=== PATIENT | female | born 1975 | race Caucasian/White ===

== ENCOUNTER 2016-12-18 18:40 | Emergency (ER) | payer SELFPAY ==
[~2016-12-18] VITALS: Ht 167.6 cm; Wt 90.0 kg
[2016-12-18 18:49] VITALS: BP 153/99; PULSE 130; RESP 18; O2SAT 98
--- NOTE | 2016-12-18 18:54 | PD ---
HPI Chief Complaint: Alcohol/Drug Intoxication Time Seen by Provider: 18:54 Travel History International Travel<30 days: No Contact w/Intl Traveler<30days: No Traveled to known affect area: No History of Present Illness HPI 41-year-old female brought in by EMS under the Andrews act for intoxication. [place] abrasions to both anterior knees. Patient is obviously intoxicated but responds to verbal stimuli , but is somewhat incoherent in her answers. She denies any significant pain. She denies . She states she drank "a lot". She denies other drug use. She states both knees hurt. I cannot quantify her pain based on her level of intoxication. She has no known drug allergies. [facility] Past Medical History Medical History: Unable to Obtain ?: Unknown Past Surgical History Surgical History: Unable to Obtain Social History Alcohol Use: Yes Tobacco Use: No Substance Use: No Allergies-Medications (Allergen,Severity, Reaction): Coded Allergies: No Known Allergies (Unverified , 12/18/16) Reported Meds & Prescriptions Reported Meds & Active Scripts Active Active Prescriptions or Reported Medications Unobtainable Review of Systems ROS Limitations: Intoxication General / Constitutional: No: Fever Eyes: No: Visual changes HENT: No: Headaches Cardiovascular: No: Chest Pain or Discomfort Respiratory: No: Shortness of Breath Gastrointestinal: No: Abdominal Pain Genitourinary: No: Dysuria Musculoskeletal: No: Pain Skin: No Rash Neurologic: No: Weakness Psychiatric: No: Depression Endocrine: No: Polydipsia Hematologic/Lymphatic: No: Easy Bruising Physical Exam Exam Limitations: Intoxication Narrative GENERAL: Patient is obviously intoxicated but responds to verbal stimuli. Answers are confused. SKIN: Warm and dry. Normal color. Normal turgor. Patient has some superficial abrasions to both anterior knees with no open lacerations. HEAD: Normocephalic. No obvious signs of trauma. EYES: Pupils equal and round. No scleral icterus. No injection or drainage. ENT: No nasal bleeding or discharge. Mucous membranes pink and moist. No obvious dental injury. Pharynx is clear. Airway is patent. NECK: Trachea midline. No bony tenderness. Range of motion is full and supple. Nontender. CARDIOVASCULAR: Regular rate and rhythm. RESPIRATORY: No accessory muscle use. Clear to auscultation. Breath sounds equal bilaterally. GASTROINTESTINAL: Abdomen soft, non-tender, nondistended. Hepatic and splenic margins not palpable. MUSCULOSKELETAL: Extremities without clubbing, cyanosis, or edema. No obvious deformities. NEUROLOGICAL: Awake and alert. No obvious cranial nerve deficits. Motor grossly within normal limits. Five out of 5 muscle strength in the arms and legs. Normal speech. PSYCHIATRIC: Unable to be determined due to the patient's intoxication. Data Data Last Documented VS Vital Signs Date Time Temp Pulse Resp B/P (MAP) Pulse Ox O2 Delivery O2 Flow Rate FiO2 12/18/16 20:03 16 98 Room Air 12/18/16 18:49 130 Orders Orders Electrocardiogram (12/18/16 18:59) Complete Blood Count With Diff (12/18/16 18:59) Comprehensive Metabolic Panel (12/18/16 18:59) Creatine Kinase (Cpk) (12/18/16 18:59) Prothrombin Time / Inr (Pt) (12/18/16 18:59) Act Partial Throm Time (Ptt) (12/18/16 18:59) Urinalysis - C+S If Indicated (12/18/16 18:59) Ct Brain W/O Iv Contrast(Rout) (12/18/16 18:59) Blood Glucose (12/18/16 18:59) Ecg Monitoring (12/18/16 18:59) Iv Access Insert/Monitor (12/18/16 18:59) Cath For Specimen (12/18/16 18:59) Oximetry (12/18/16 18:59) Sodium Chloride 0.9% Flush (Ns Flush) (12/18/16 19:00) Sodium Chlor 0.9% 1000 Ml Inj (Ns 1000 M (12/18/16 18:59) Thiamine Inj (Thiamine Inj) (12/18/16 19:00) Drug Screen, Random Urine (12/18/16 18:59) Alcohol (Ethanol) (12/18/16 18:59) Tylenol (Acetaminophen) (12/18/16 18:59) Salicylates (Aspirin) (12/18/16 18:59) Ed Urine Pregnancytest Poc (12/18/16 18:59) Lorazepam Inj (Ativan Inj) (12/18/16 19:00) Restraints Violent (12/18/16 19:32) Diphenhydramine Inj (Benadryl Inj) (12/18/16 20:00) Haloperidol Inj (Haldol Inj) (12/18/16 20:00) Alcohol Withdrawal Asmt-Ciwa Q4HX18 (12/18/16 22:05) Flumazenil Inj (Romazicon Inj) (12/18/16 22:15) Lorazepam (Ativan) (12/18/16 22:15) Lorazepam Inj (Ativan Inj) (12/18/16 22:15) Lorazepam (Ativan) (12/18/16 22:15) Lorazepam Inj (Ativan Inj) (12/18/16 22:15) Lorazepam Inj (Ativan Inj) (12/18/16 22:15) Lorazepam Inj (Ativan Inj) (12/18/16 22:15) Labs Laboratory Tests Test 12/18/16 19:30 White Blood Count 8.6 TH/MM3 Red Blood Count 4.03 MIL/MM3 Hemoglobin 13.7 GM/DL Hematocrit 40.2 % Mean Corpuscular Volume 99.7 FL Mean Corpuscular Hemoglobin 34.1 PG Mean Corpuscular Hemoglobin Concent 34.2 % Red Cell Distribution Width 12.4 % Platelet Count 287 TH/MM3 Mean Platelet Volume 7.6 FL Neutrophils (%) (Auto) 53.3 % Lymphocytes (%) (Auto) 31.5 % Monocytes (%) (Auto) 14.7 % Eosinophils (%) (Auto) 0.1 % Basophils (%) (Auto) 0.4 % Neutrophils # (Auto) 4.6 TH/MM3 Lymphocytes # (Auto) 2.7 TH/MM3 Monocytes # (Auto) 1.3 TH/MM3 Eosinophils # (Auto) 0.0 TH/MM3 Basophils # (Auto) 0.0 TH/MM3 CBC Comment DIFF FINAL Differential Comment Prothrombin Time 10.0 SEC Prothromb Time International Ratio 0.9 RATIO Activated Partial Thromboplast Time 29.6 SEC Urine Color STRAW Urine Turbidity CLEAR Urine pH 5.5 Urine Specific [place] 1.004 Urine Protein NEG mg/dL Urine Glucose (UA) NEG mg/dL Urine Ketones NEG mg/dL Urine Occult Blood NEG Urine Nitrite NEG Urine Bilirubin NEG Urine Urobilinogen LESS THAN 2.0 MG/DL Urine Leukocyte Esterase NEG Urine RBC 1 /hpf Urine WBC LESS THAN 1 /hpf Urine Squamous Epithelial Cells <1 /hpf Microscopic Urinalysis Comment CATH-CULT NOT IND Blood Urea Nitrogen 15 MG/DL Creatinine 0.73 MG/DL Random Glucose 117 MG/DL Total Protein 9.9 GM/DL Albumin 3.8 GM/DL Calcium Level 9.0 MG/DL Alkaline Phosphatase 66 U/L Aspartate Amino Transf (AST/SGOT) 17 U/L Alanine Aminotransferase (ALT/SGPT) 24 U/L Total Bilirubin 0.3 MG/DL Sodium Level 134 MEQ/L Potassium Level 3.5 MEQ/L Chloride Level 104 MEQ/L Carbon Dioxide Level 21.5 MEQ/L Anion Gap 9 MEQ/L Estimat Glomerular Filtration Rate 87 ML/MIN Total Creatine Kinase 123 U/L Salicylates Level LESS THAN 1.7 MG/DL Urine Opiates Screen NEG Acetaminophen Level LESS THAN 2.0 MCG/ML Urine Barbiturates Screen NEG Urine Amphetamines Screen NEG Urine Benzodiazepines Screen NEG Urine Cocaine Screen NEG Urine Cannabinoids Screen NEG Ethyl Alcohol Level 437 MG/DL MDM Medical Decision Making Medical Screen Exam Complete: Yes Emergency Medical Condition: Yes Differential Diagnosis Rc's act. Knee abrasions. Contusions. Intoxication. Altered mental status. Narrative Course Patient is intoxicated but felt to be medically stable at time of exam. Labs ordered including CBC, CMP, urinalysis, urine , lipase, serum alcohol level, Urine drug screen, acetaminophen level, salicylate level. CT of the head is ordered. IV access is obtained patient is given 1000 mg IV normal saline bolus, 100 mg thiamine IV, 1 mg Ativan IV. The patient became more belligerent and uncooperative, so the patient was placed in soft restraints. Patient was also given 50 mg Benadryl IV and [address] shows no acute intracranial process, as well as some subacute or old nasal fractures per radiologist. CBC is unremarkable. Urine tox screen is negative. Salicylates are less than 1.7, acetaminophen is negative, serum alcohol level is 437. Coagulation studies are normal. Urinalysis is negative. [facility] protocol was initiated for this patient. 2300 hrs. care the patient is assumed by Dr. Calderon who will determine final disposition. Diagnosis Primary Impression: Alcohol intoxication delirium, acute, mixed level of activity Additional Impressions: Knee contusion Qualified Codes: S80.00XA - Contusion of unspecified knee, initial encounter Abrasion of knee, bilateral Scripts Unable to Obtain Active Prescriptions or Reported Meds Condition: Vik Cristina Dec 18, 2016 18:54
[2016-12-18] MEDS ORDERED: SODIUM CHLOR 0.9% 1000 ML INJ 1,000 ML IV SCH (18:59)
[2016-12-18] MEDS ORDERED: SODIUM CHLORIDE 0.9% FLUSH 5 ML FLUSH IV FLUSH PRN (19:00)
[2016-12-18] MEDS ORDERED: LORazepam 2 MG/ML VIAL IV PUSH ONE (19:00)
[2016-12-18] MEDS ORDERED: THIAMINE INJ 100 MG in SODIUM CHLORIDE 0.9% INJ 100 ML IV ONE (19:00)
[2016-12-18] MEDS ORDERED: HALOPERIDOL LACTATE 5 MG/ML AMP IM ONE (20:00)
[2016-12-18] MEDS ORDERED: diphenhydrAMINE HCL 50 MG/ML VIAL IV PUSH ONE (20:00)
[2016-12-18 20:03] VITALS: RESP 16; O2SAT 98
[2016-12-18 20:14] LABS: AUTOMATED NEUTROPHIL # 4.6 TH/MM3 (1.8-7.7); BASOPHIL % 0.4 % (0.0-2.0); EOSINOPHIL % 0.1 % (0.0-4.0); HEMATOCRIT 40.2 % (35.0-46.0); HEMOGLOBIN 13.7 GM/DL (11.6-15.3); LYMPH % 31.5 % (9.0-44.0); LYMPHOCYTE # 2.7 TH/MM3 (1.0-4.8); MEAN CELL VOLUME 99.7 FL (80.0-100.0); MEAN CORPUSCULAR HEMOGLOBIN 34.1 PG (27.0-34.0); MEAN CORPUSCULAR HGB CONC 34.2 % (32.0-36.0); MEAN PLATELET VOLUME 7.6 FL (7.0-11.0); MONO % 14.7 % (0.0-8.0); MONOCYTE # 1.3 TH/MM3 (0-0.9); NEUT % 53.3 % (16.0-70.0); PLATELET COUNT 287 TH/MM3 (150-450); RED BLOOD COUNT 4.03 MIL/MM3 (4.00-5.30); RED CELL DISTRIBUTION WIDTH 12.4 % (11.6-17.2); WHITE BLOOD COUNT 8.6 TH/MM3 (4.0-11.0)
[2016-12-18 20:24] LABS: BILIRUBIN, URINE NEG (NEG); BLOOD, URINE NEG (NEG); GLUCOSE,URINE NEG (NEG); KETONE, URINE NEG (NEG); NITRITE,URINE NEG (NEG); PH, URINE 5.5 (5.0-8.5); SQUAMOUS EPITHELIAL CELL URINE <1 /hpf (0-5); URINE COLOR STRAW (YELLW/STRAW); URINE LEUKOCYTE ESTERASE NEG (NEG)
[2016-12-18 20:35] LABS: INTERNATIONAL NORMALIZED RATIO 0.9 RATIO
--- NOTE | 2016-12-18 20:52 | RADRPT ---
EXAM DATE/TIME: 12/18/2016 20:12 [place] COMPARISON: No previous studies available for comparison. INDICATIONS : Altered mental status. RADIATION DOSE: 56.35 CTDIvol (mGy) MEDICAL HISTORY : None SURGICAL HISTORY : None. ENCOUNTER: Initial ACUITY: 1 day PAIN SCALE: Non-responsive LOCATION: Bilateral head TECHNIQUE: Multiple contiguous axial images were obtained of the head. Using automated exposure control and adj ustment of the mA and/or kV according to patient size, radiation dose was kept as low as reasonably a chievable to obtain optimal diagnostic quality images. DICOM format image data is available electro nically for review and comparison. FINDINGS: CEREBRUM: The ventricles are normal for age. No evidence of midline shift, mass lesion, hemorrhage or acute in farction. No extra-axial fluid collections are seen. POSTERIOR FOSSA: The cerebellum and brainstem are intact. The 4th ventricle is midline. The cerebellopontine angle i s unremarkable. EXTRACRANIAL: The visualized portion of the orbits is intact. SKULL: The calvaria is intact. No evidence of skull fracture. CONCLUSION: No acute intracranial abnormalities. Nasal fractures, probably subacute or old. Anirudh Kong MD on December 18, 2016 at 20:38 Board Certified Radiologist. This report was verified electronically.
[2016-12-18 21:03] LABS: ALBUMIN 3.8 GM/DL (3.4-5.0); ALKALINE PHOSPHATASE 66 U/L (45-117); ALT (GPT) 24 U/L (10-53); AST (GOT) 17 U/L (15-37); BICARBONATE 21.5 MEQ/L (21.0-32.0); BLOOD UREA NITROGEN 15 MG/DL (7-18); CHLORIDE 104 MEQ/L (98-107); CREATININE 0.73 MG/DL (0.50-1.00); GLOMERULAR FILTRATION RATE 87 ML/MIN (>89); GLUCOSE,RANDOM 117 MG/DL (74-106); SODIUM (NA) 134 MEQ/L (136-145); TOTAL BILIRUBIN ADULT 0.3 MG/DL (0.2-1.0); TOTAL PROTEIN 9.9 GM/DL (6.4-8.2)
[2016-12-18 21:04] LABS: ACETAMINOPHEN LESS THAN 2.0 MCG/ML (10.0-30.0)
[2016-12-18] MEDS ORDERED: LORazepam 2 MG/ML VIAL IV PUSH PRN ×4 (22:15)
[2016-12-18] MEDS ORDERED: LORazepam 1 MG TAB PO PRN (22:15)
[2016-12-18] MEDS ORDERED: LORazepam 2 MG TAB PO PRN (22:15)
[2016-12-18] MEDS ORDERED: FLUMAZENIL 0.5 MG/5 ML VIAL IV PUSH PRN (22:15)
--- NOTE | 2016-12-19 02:40 | PD ---
Data Data Last Documented VS Vital Signs Date Time Temp Pulse Resp B/P (MAP) Pulse Ox O2 Delivery O2 Flow Rate FiO2 12/18/16 20:03 16 98 Room Air 12/18/16 18:49 130 Orders Orders Electrocardiogram (12/18/16 18:59) Complete Blood Count With Diff (12/18/16 18:59) Comprehensive Metabolic Panel (12/18/16 18:59) Creatine Kinase (Cpk) (12/18/16 18:59) Prothrombin Time / Inr (Pt) (12/18/16 18:59) Act Partial Throm Time (Ptt) (12/18/16 18:59) Urinalysis - C+S If Indicated (12/18/16 18:59) Ct Brain W/O Iv Contrast(Rout) (12/18/16 18:59) Blood Glucose (12/18/16 18:59) Ecg Monitoring (12/18/16 18:59) Iv Access Insert/Monitor (12/18/16 18:59) Cath For Specimen (12/18/16 18:59) Oximetry (12/18/16 18:59) Sodium Chloride 0.9% Flush (Ns Flush) (12/18/16 19:00) Sodium Chlor 0.9% 1000 Ml Inj (Ns 1000 M (12/18/16 18:59) Thiamine Inj (Thiamine Inj) (12/18/16 19:00) Drug Screen, Random Urine (12/18/16 18:59) Alcohol (Ethanol) (12/18/16 18:59) Tylenol (Acetaminophen) (12/18/16 18:59) Salicylates (Aspirin) (12/18/16 18:59) Ed Urine Pregnancytest Poc (12/18/16 18:59) Lorazepam Inj (Ativan Inj) (12/18/16 19:00) Restraints Violent (12/18/16 19:32) Diphenhydramine Inj (Benadryl Inj) (12/18/16 20:00) Haloperidol Inj (Haldol Inj) (12/18/16 20:00) Alcohol Withdrawal Asmt-Ciwa Q4HX18 (12/18/16 22:05) Flumazenil Inj (Romazicon Inj) (12/18/16 22:15) Lorazepam (Ativan) (12/18/16 22:15) Lorazepam Inj (Ativan Inj) (12/18/16 22:15) Lorazepam (Ativan) (12/18/16 22:15) Lorazepam Inj (Ativan Inj) (12/18/16 22:15) Lorazepam Inj (Ativan Inj) (12/18/16 22:15) Lorazepam Inj (Ativan Inj) (12/18/16 22:15) Labs Laboratory Tests Test 12/18/16 19:30 White Blood Count 8.6 TH/MM3 Red Blood Count 4.03 MIL/MM3 Hemoglobin 13.7 GM/DL Hematocrit 40.2 % Mean Corpuscular Volume 99.7 FL Mean Corpuscular Hemoglobin 34.1 PG Mean Corpuscular Hemoglobin Concent 34.2 % Red Cell Distribution Width 12.4 % Platelet Count 287 TH/MM3 Mean Platelet Volume 7.6 FL Neutrophils (%) (Auto) 53.3 % Lymphocytes (%) (Auto) 31.5 % Monocytes (%) (Auto) 14.7 % Eosinophils (%) (Auto) 0.1 % Basophils (%) (Auto) 0.4 % Neutrophils # (Auto) 4.6 TH/MM3 Lymphocytes # (Auto) 2.7 TH/MM3 Monocytes # (Auto) 1.3 TH/MM3 Eosinophils # (Auto) 0.0 TH/MM3 Basophils # (Auto) 0.0 TH/MM3 CBC Comment DIFF FINAL Differential Comment Prothrombin Time 10.0 SEC Prothromb Time International Ratio 0.9 RATIO Activated Partial Thromboplast Time 29.6 SEC Urine Color STRAW Urine Turbidity CLEAR Urine pH 5.5 Urine Specific [place] 1.004 Urine Protein NEG mg/dL Urine Glucose (UA) NEG mg/dL Urine Ketones NEG mg/dL Urine Occult Blood NEG Urine Nitrite NEG Urine Bilirubin NEG Urine Urobilinogen LESS THAN 2.0 MG/DL Urine Leukocyte Esterase NEG Urine RBC 1 /hpf Urine WBC LESS THAN 1 /hpf Urine Squamous Epithelial Cells <1 /hpf Microscopic Urinalysis Comment CATH-CULT NOT IND Blood Urea Nitrogen 15 MG/DL Creatinine 0.73 MG/DL Random Glucose 117 MG/DL Total Protein 9.9 GM/DL Albumin 3.8 GM/DL Calcium Level 9.0 MG/DL Alkaline Phosphatase 66 U/L Aspartate Amino Transf (AST/SGOT) 17 U/L Alanine Aminotransferase (ALT/SGPT) 24 U/L Total Bilirubin 0.3 MG/DL Sodium Level 134 MEQ/L Potassium Level 3.5 MEQ/L Chloride Level 104 MEQ/L Carbon Dioxide Level 21.5 MEQ/L Anion Gap 9 MEQ/L Estimat Glomerular Filtration Rate 87 ML/MIN Total Creatine Kinase 123 U/L Salicylates Level LESS THAN 1.7 MG/DL Urine Opiates Screen NEG Acetaminophen Level LESS THAN 2.0 MCG/ML Urine Barbiturates Screen NEG Urine Amphetamines Screen NEG Urine Benzodiazepines Screen NEG Urine Cocaine Screen NEG Urine Cannabinoids Screen NEG Ethyl Alcohol Level 437 MG/DL MDM Supervised Visit with JOSELINE: Yes Narrative Course Patient seen and examined by me at 02 100, patient is 41-year-old female here on Andrews act, significantly intoxicated is on [facility] protocol. She is examined by me because she was found to be tachycardic in the 150s on cardiac monitoring. She is agitated fighting restraints. She had to be placed in 4- point restraints because she is unable to cooperate with physical exam and too intoxicated to make her own medical decisions. Additional Ativan was given she had appropriate response in her heart rate down in the low 100s now. Continue to monitor in the emergency department to clinically sober. Diagnosis Primary Impression: Alcohol intoxication delirium, acute, mixed level of activity Additional Impressions: Abrasion of knee, bilateral Knee contusion Qualified Codes: S80.00XA - Contusion of unspecified knee, initial encounter Scripts Unable to Obtain Active Prescriptions or Reported Meds Condition: Tien Ni MD Dec 19, 2016 02:40
[2016-12-19 03:13] VITALS: BP 146/86; PULSE 96; RESP 16; O2SAT 98
[2016-12-19 05:04] VITALS: BP 105/74; PULSE 113; RESP 16; O2SAT 98
[2016-12-19] MEDS ORDERED: SODIUM CHLOR 0.9% 1000 ML INJ 1,000 ML IV ONE (05:15)
[2016-12-19 06:02] VITALS: BP 112/71; PULSE 112; RESP 16; O2SAT 99
[2016-12-19 06:10] VITALS: PULSE 96
[2016-12-19 06:45] VITALS: PULSE 99
--- NOTE | 2016-12-19 13:25 | EKG ---
Date Performed: 12/18/2016 Time Performed: 21:08:38 PTAGE: 41 years EKG: SINUS TACHYCARDIA NONSPECIFIC T-WAVE ABNORMALITY ABNORMAL RHYTHM ECG NO PREVIOUS TRACING DOCTOR: Clinton Pizarro Interpretating Date/Time 12/19/2016 13:24:03
== END 2016-12-19 08:52 | disposition home or self-care (01) ==
LOC: NEPE 18:40 → NEPD 12-19 08:52
DX: F10.121 Alcohol abuse with intoxication delirium (principal); S80.211A Abrasion, right knee, initial encounter; S80.212A Abrasion, left knee, initial encounter; S80.00XA Contusion of unspecified knee, initial encounter; R00.0 Tachycardia, unspecified; Y90.8 Blood alcohol level of 240 mg/100 ml or more; X58.XXXA Exposure to other specified factors, initial encounter; Y92.832 Beach as the place of occurrence of the external cause
CPT/HCPCS: 70450; 80053; 80307; 81001; 82550; 84703; 85025; 85610; 85730; 93005; 96361; 96365; 96366; 96372; 96375; 96376; 99285; J1200; J1630; J2060; J3411; J7030; P9612